=== PATIENT | male | born 1960 | race Caucasian/White ===

== ENCOUNTER 2017-10-21 15:08 | Emergency (ER) | payer MEDICAID ==
[2017-10-21 15:21] VITALS: BP 114/80
--- NOTE | 2017-10-21 15:47 | ED Physician Documentation ---
History of Present Illness - Stated complaint Stated Complaint: PANIC ATTACK/COLD - Chief complaint Chief Complaint: Resp - History obtained from History obtained from: Patient, Family (Mother and sister.) - History of Present Illness Timing: Today - Additonal information Additional information: The patient is a 57-year-old male with history of schizoaffective disorder and anxiety disorder, who complains of "panic attack" just prior to arrival. He reports feeling shortness of breath and states that he "couldn't breathe." He has recently had cough and congestion, and was started on amoxicillin 1 week ago for an infected root canal. He denies fever, chest pain, or abdominal symptoms. He is visiting family here for [place], having flown from [place] 5 days ago. Review of Systems Constitutional: denies: Fever Ears: denies: Ear pain Nose: reports: Congestion Throat: denies: Sore throat Cardiac: denies: Chest pain / pressure Respiratory: reports: Dyspnea (Transient, but not currently.), Cough GI: denies: Abdominal Pain, Nausea, Vomiting : denies: Dysuria Skin: denies: Rash Musculoskeletal: denies: Back pain, Extremity pain, Extremity swelling Neurologic: denies: Focal weakness, Numbness, Headache Psychiatric: reports: Anxiety (Now resolved.) PD PAST MEDICAL HISTORY - Past Medical History Past Medical History: Yes Psych: Depression, Anxiety, Bipolar disorder, Schizophrenia - Present Medications Home Medications: Ambulatory Orders Medication Instructions Recorded Confirmed Alprazolam [Xanax] 0.5 mg PO BID PRN #10 tablet 10/21/17 Amantadine HCl [Amantadine] 100 mg PO TID 10/21/17 10/21/17 Atenolol 100 mg PO DAILY 10/21/17 10/21/17 Bupropion HCl [Bupropion HCl Sr] 150 mg PO TID 10/21/17 10/21/17 Fluticasone [Flonase] 1 spray SHWETA DAILY 10/21/17 10/21/17 Ibuprofen 1 tab PO Q8HR PRN 10/21/17 10/21/17 Naproxen Sodium [Aleve] 1 - 2 tab PO Q6HR PRN 10/21/17 10/21/17 OLANZapine [Olanzapine] 40 mg PO DAILY 10/21/17 10/21/17 Pravastatin Sodium 40 mg PO DAILY 10/21/17 10/21/17 fluPHENAZine HCl [Fluphenazine HCl] 1 mg PO QID 10/21/17 10/21/17 - Allergies Allergies/Adverse Reactions: Allergies Allergy/AdvReac Type Severity Reaction Status Date / Time No Known Drug Allergies Allergy Verified 10/21/17 15:16 - Social History Does the pt smoke?: No Smoking Status: Never smoker Additional Social History: Visiting here from [place]. PD ED PE NORMAL - Vitals Vital signs reviewed: Yes (normal) - General General: Alert and oriented X 3, Well developed/nourished - HEENT HEENT: Atraumatic, EOMI, Pharynx benign - Neck Neck: No adenopathy, No JVD - Cardiac Cardiac: RRR, No murmur - Respiratory Respiratory: No respiratory distress, Clear bilaterally - Abdomen Abdomen: Soft, Non tender - Back Back: No CVA TTP - Derm Derm: No rash - Extremities Extremities: No edema, No calf tenderness / cord - Neuro Neuro: Alert and oriented X 3, No motor deficit, Normal speech - Psych Psych: Normal affect Results - Vitals Vitals: Oxygen O2 Source Room air PD MEDICAL DECISION MAKING - ED course Complexity details: considered differential, d/w patient, d/w family ED course: The patient's presentation is most consistent with a brief panic attack. His symptoms have resolved prior to my evaluation in the emergency department. Despite his recent airplane flight, there is no clinical evidence to suggest deep venous thrombosis or pulmonary embolus. The patient is being discharged with prescription for Xanax, 10 tablets. I discussed with him and his family symptomatic treatment, as well as potentially worrisome signs or symptoms that should prompt reevaluation in the emergency department. Departure - Departure Disposition: 01 Home, Self Care Clinical Impression: Panic attack Condition: Stable Instructions: ED Panic Attack Prescriptions: Alprazolam [Xanax] 0.5 mg PO BID PRN #10 tablet PRN Reason: Anxiety Comments: Continue your medications as previously prescribed. You can use Xanax if needed for increased anxiety or panic symptoms. Return to the emergency department if you develop increasing anxiety, increased difficulty breathing, or otherwise worsening symptoms. Discharge Date/Time: 10/21/17 16:03
== END 2017-10-21 16:03 | disposition home or self-care (01) ==
LOC: ED 15:08
DX: F41.0 Panic disorder [episodic paroxysmal anxiety] (principal); F25.0 Schizoaffective disorder, bipolar type; F32.9 Major depressive disorder, single episode, unspecified
CPT/HCPCS: 99283